=== PATIENT | female | born 1985 | race Hispanic/Latino ===

== ENCOUNTER 2016-09-08 12:24 | Emergency (ER) | payer OTHER | END 2016-09-08 12:48 | disposition home or self-care (01) | LOC: NAV ERS 12:24 | DX: S50.862A Insect bite (nonvenomous) of left forearm, initial encounter (principal); J06.9 Acute upper respiratory infection, unspecified; W57.XXXA Bitten or stung by nonvenomous insect and other nonvenomous arthropods, initial encounter ==

== ENCOUNTER 2016-09-25 22:55 | Emergency (ER) | payer MEDICAID, OTHER ==
[~2016-09-25 22:55] MED LIST: Iopamidol 370 76% 100 ML VIAL ONE
[2016-09-25 23:19] LABS: #Basophils 0.1 thou/uL (0.0-0.2); #Eosinphils 0.2 thou/uL (0.0-0.7); #Lymphocytes 2.8 thou/uL (1.20-3.40); #Monocytes 0.4 thou/uL (0.11-0.59); #Neutrophils 4.7 thou/uL (1.40-6.50); %Basophils 0.7 % (0.0-1.0); %Eosinophils 2.4 % (0.0-10.0); %Lymphocytes 34.1 % (21.0-51.0); %Neutrophils 57.7 % (42.0-75.0); Hemoglobin 13.2 g/dL (12.0-16.0); Mean Corpuscular Hemoglobin 28.6 pg (27.0-31.0); Mean Corpuscular Volume 86.9 fl (81.0-99.0); Mean Platelet Volume 9.5 fL (7.4-10.4); Platelet Count 199 thou/uL (130-400); RBC Distribution Width 11.4 % (11.5-14.5); Red Blood Cell (RBC) Count 4.61 mill/uL (4.20-5.40); White Blood Cell (WBC) Count 8.1 thou/uL (4.8-10.8)
[2016-09-25 23:28] LABS: Bilirubin Negative (Negative); Blood, Urine Negative (Negative); Clarity Clear (Clear); Glucose, Urine (Dipstick) Negative (Negative); Leukocyte Negative (Negative); Nitrite Negative (Negative); Pregnancy Test - Urine (BHCG) NEGATIVE (NEGATIVE); Pregu Control Bar Appear? YES (CONTROL BAR); Protein, Urine (Dipstick) Negative (Neg-Trace); Specific Gravity 1.025 (1.002-1.036); Specific Gravity, Urine 1.025 (1.005-1.030); Urobilinogen 0.2 mg/dL (0.2-1.0)
[2016-09-25] MEDS ORDERED: Ketorolac Tromethamine 30 MG/ML VIAL ONE (23:28)
[2016-09-25 23:39] LABS: ALT (SGPT) 11 U/L (8-55); AST (SGOT) 15 U/L (5-34); Alkaline Phosphatase 79 U/L (40-150); Anion Gap 13 mmol/L (10-20); BUN (Urea Nitrogen) 18 mg/dL (7.0-18.7); Bilirubin, Total 0.2 mg/dL (0.2-1.2); Calc. Creatinine Clearance 0 mL/min (70-130); Calcium 9.3 mg/dL (7.8-10.44); Carbon Dioxide 26 mmol/L (22-29); Chloride 105 mmol/L (98-107); Estimated GFR-MDRD 90; Globulin 3.2 g/dL (2.4-3.5); Glucose 109 mg/dL (70-105); Potassium 3.8 mmol/L (3.5-5.1); Protein, Total 7.2 g/dL (6.0-8.3); Sodium 140 mmol/L (136-145)
[2016-09-25] MEDS ORDERED: Promethazine HCl 25 MG/ML VIAL ONE (23:51)
[2016-09-25] MEDS ORDERED: Fentanyl 100 MCG/2 ML VIAL ONE (23:59)
--- NOTE | 2016-09-26 00:01 | CT ---
CT OF ABDOMEN AND PELVIS 09/25/16 COMPARISON: None. HISTORY: Central lower abdominal/pelvic pain. TECHNIQUE: Serial axial CT imaging obtained at 5 mm intervals from lung bases through pubic symphysis with IV c ontrast. Coronal reformatted imaging obtained. FINDINGS: The lack of oral contrast limits assessment of the bowel. The imaged lung bases are grossly unremarkable. No free intraperitoneal air noted. The liver, spleen, and gallbladder demonstrate no acute findings. There is a tiny hepatic hypodensit y on image 14, too small to characterize. The pancreas, adrenal glands and kidneys are grossly unrem arkable. There is small volume nonspecific free fluid within the pelvic cul-de-sac on the right. There is leif ris within the stomach. There is a small fat containing umbilical hernia. Limited assessment of the appendix is grossly unremarkable. No evidence for small bowel obstruction is seen. The vascular structures of the abdomen/pelvis appear patent. The urinary is decompressed and poorly assessed. No lymphadenopathy noted within the abdomen or pelvis. Osseous structures demonstrate no a cute findings. There is unilateral sclerotic change involving the left sacroiliac joint suggesting sacroiliitis of uncertain acuity. IMPRESSION: No evidence for free intraperitoneal air or small bowel obstruction. POS: [facility]
== END 2016-09-26 00:23 | disposition home or self-care (01) ==
LOC: NAV ERS 22:55
DX: R10.30 Lower abdominal pain, unspecified (principal); B34.9 Viral infection, unspecified; I10 Essential (primary) hypertension; F41.9 Anxiety disorder, unspecified; Z87.891 Personal history of nicotine dependence
CPT/HCPCS: 36415; 74177; 80053; 81003; 81025; 85025; 87086; 96374; 96375; J1885; J2550; J3010